=== PATIENT | male | born 1975 | race Caucasian/White ===

== ENCOUNTER 2017-06-24 22:31 | Observation (INO) | payer MEDICAID, OTHER ==
[2017-06-24 22:31] VITALS: BMI 24.3
[2017-06-24] MEDS ORDERED: DiphenhydrAMINE 50 mg/ml Inj IM STA (22:50)
[2017-06-24] MEDS ORDERED: TDAP Vaccine 0.5 mL Syr IM ONE (22:50)
--- NOTE | 2017-06-24 22:53 | ED PDOC ---
Arrival/HPI - General Historian: Patient, EMS - History of Present Illness Symptom Onset: Gradual Severity Level: Mild Activities at Onset: Light - General Chief Complaint: Alcohol Ingestion Time Seen by Provider: 06/24/17 22:46 - History of Present Illness Narrative History of Present Illness (Text): 06/24/17 23:01 Patient presents with slurring of speech and alcohol on breath. Admits to drinking throughout the day. Pt denies suicidal or homicidal ideations. Patient has superficial abrasions to bilateral knees. (Cheikh Bill) Past Medical History - Provider Review Nursing Documentation Reviewed: Yes - Musculoskeletal/Rheumatological Hx Falls: No - Psychiatric Hx Substance Use: No - Past Surgical History Past Surgical History: No Previous - Anesthesia Hx Anesthesia: No Family/Social History - Physician Review Nursing Documentation Reviewed: Yes Family/Social History: No Known Family HX Smoking Status: Unknown If Ever Smoked Hx Alcohol Use: Yes Frequency of alcohol use: Few days per week Hx Substance Use: No Allergies/Home Meds Allergies/Adverse Reactions: Allergies shellfish derived Allergy (Verified 06/24/17 22:47) VOMITING Review of Systems - Review of Systems Systems not reviewed;Unavailable: Intoxicated Physical Exam Vital Signs Reviewed: Yes Temperature: Afebrile Blood Pressure: Normal Pulse: Regular Respiratory Rate: Normal Appearance: Positive for: Non-Toxic Pain Distress: None Mental Status: Positive for: Agitated. No: Confused - Physical Exam Narrative Physical Exam (Text): 06/24/17 23:02 Patient is in no distress, no airway compromise, breathing without difficulty, good insp/exp effort. No signs of head/torso trauma. Following commands without difficulty. Head: Present: Atraumatic, Normocephalic. No: Tenderness, Contusion, Swelling, Ecchymosis, Abrasion, Laceration Pupils: Present: PERRL Extroacular Muscles: Present: EOMI Conjunctiva: Present: Normal Mouth: Present: Moist Mucous Membranes Neck: Present: Normal Range of Motion. No: MIDLINE TENDERNESS, Paraspinal Tenderness Respiratory/Chest: Present: Clear to Auscultation, Good Air Exchange. No: Respiratory Distress, Accessory Muscle Use Cardiovascular: Present: Regular Rate and Rhythm, Normal S1, S2. No: Murmurs Abdomen: Present: Normal Bowel Sounds. No: Tenderness, Distention, Peritoneal Signs, Rebound, Guarding Back: Present: Normal Inspection. No: Midline Tenderness, Paraspinal Tenderness Upper Extremity: Present: Normal Inspection. No: Cyanosis, Edema Lower Extremity: Present: superficial abrasions to b/l knees with full active and passive range of motion. No: Edema Neurological: Present: GCS=15, CN II-XII Intact Skin: Present: Warm, Dry, Normal Color. No: Rashes Lymphatic: Present: OX3, NI, NC Psychiatric: Present: Alert. Agitated Absent: suicidal/homicidal ideations (Cheikh Bill) Vital Signs Temp Pulse Resp BP Pulse Ox 06/25/17 12:09 76 15 147/80 97 06/25/17 10:55 66 16 123/74 98 06/25/17 08:30 65 15 91/56 L 98 06/25/17 06:00 68 16 107/64 100 06/25/17 03:31 98.0 F 70 17 107/63 98 Medical Decision Making ED Course and Treatment: Impression: A 41 year old male who presents to the emergency department via ambulance for intoxication. Patient admits to drinking alcohol and has superficial abrasion to b/l knees with full active and passive range of motion. Patient became agitated, a threat to self and others, attempted verbal de escalation which was unsuccessful. Medications ordered. Plan: -- CT Head -- Benadryl -- Haldol -- Ativan -- Tdap -- Knee X-ray -- Reassess and disposition Progress Notes: 06/24/17 23:[address] pt on edobs for etoh intoxication. (Cheikh Bill) - Medication Orders Current Medication Orders: Discontinued Medications Diphenhydramine HCl (Benadryl) 50 mg IM STAT STA Stop: 06/24/17 22:51 Last Admin: 06/24/17 22:55 Dose: 50 mg Haloperidol Lactate (Haldol) 5 mg IM STAT STA Stop: 06/24/17 22:51 Last Admin: 06/24/17 22:55 Dose: 5 mg Lorazepam (Ativan) 2 mg IM ONCE ONE Stop: 06/24/17 22:51 Last Admin: 06/24/17 22:55 Dose: 2 mg Tetanus/Reduced Diphtheria/Acell Pertussis (Boostrix Vaccine Inj) 0.5 ml IM .ONCE ONE Stop: 06/24/17 22:51 Last Admin: 06/25/17 00:40 Dose: 0.5 ml Ziprasidone (Geodon Inj) 20 mg IM STAT STA PRN Reason: Protocol Stop: 06/25/17 01:05 Last Admin: 06/25/17 01:20 Dose: 20 mg Ziprasidone (Geodon Inj) Confirm Administered Dose 20 mg IM .STK-MED ONE Stop: 06/25/17 01:07 Last Admin: 06/25/17 01:25 Dose: ED OBSERVATION Date of observation admission: 06/24/17 Time of observation admission: 22:53 - Observation admission statement Patient is being placed in observation because:: alcohol intoxication (Cheikh Bill) - Goals of Observation Goals of observation are:: pending sobriety (Cheikh Bill) - Progress Note Progress Note: 06/24/17 22:33 Patient agitate in the ed, Haldol and benadryl ordered. Stable vitals. 06/25/17 01:34 Patient is alert, agitated. Sedated with 20mg Geodon and placed on 4pt restraints. 06/25/17 03:34 On reevaluation, patient is resting comfortably watching TV in the er. Stable vitals. No signs of withdrawal. 06/25/17 07:00 patient signed out to Dr. Montoya in stable condition, pending sobriety, imaging , reevakl, dispo (Cheikh Bill) 06/25/17 07:05 Patient endorsed to me by Dr. Bill. Pending sobriety and imaging. Patient presented for alcohol intoxication. Report Date : 06/25/2017 08:10:43 PROCEDURE: CT HEAD WITHOUT CONTRAST. Dictator : Jorge Luis Collins MD IMPRESSION: Normal CT of the Head. 06/25/17 09:00 Patient resting comfortably, in no acute distress. 06/25/17 11:10 On re-evaluation, patient is clinically sober, ambulating with a steady gait. I have discussed the results and plan with the patient, who expresses understanding. Patient in agreement with plan to be discharged home. Patient is stable for discharge. Report Date : 06/25/2017 12:26:31 PROCEDURE: Bilateral Knee Radiographs. Dictator : Timmy Cruz MD IMPRESSION: Normal radiographs of the knees. (Evert Montoya) - Scribe Statement The provider has reviewed the documentation as recorded by the Scribe - Scribe Statement Filomena Allen (Cheikh Bill) Provider Attestation: Provider Scribe Attestation: All medical record entries made by the Scribe were at my direction and personally dictated by me. I have reviewed the chart and agree that the record accurately reflects my personal performance of the history, physical exam, medical decision making, and the department course for this patient. I have also personally directed, reviewed, and agree with the discharge instructions and disposition. (Cheikh Bill) Disposition/Present on Arrival - Present on Arrival Any Indicators Present on Arrival: No History of DVT/PE: No History of Uncontrolled Diabetes: No Urinary Catheter: No History of Decub. Ulcer: No History Surgical Site Infection Following: None - Disposition Have Diagnosis and Disposition been Completed?: Yes Disposition Time: 22:53 Patient Plan: Observation - Disposition Diagnosis: Alcohol intoxication Disposition: HOME/ ROUTINE Patient Problems: Current Active Problems Problem Status Onset Alcohol intoxication Acute Condition: STABLE
[2017-06-25 04:42] VITALS: TEMP 98
--- NOTE | 2017-06-25 08:12 | CT ---
PROCEDURE: CT HEAD WITHOUT CONTRAST. HISTORY: EtOH, fall COMPARISON: None available. TECHNIQUE: Axial computed tomography images were obtained through the head/brain without intravenous contrast. Radiation dose: Total exam DLP = 723 mGy-cm. This CT exam was performed using one or more of the following dose reduction techniques: Automated exposure control, adjustment of the mA and/or kV according to patient size, and/or use of iterative reconstruction technique. FINDINGS: HEMORRHAGE: No intracranial hemorrhage. BRAIN: No mass effect or edema. No atrophy or chronic microvascular ischemic changes. VENTRICLES: Unremarkable. No hydrocephalus. CALVARIUM: Unremarkable. PARANASAL SINUSES: Unremarkable as visualized. No significant inflammatory changes. MASTOID AIR CELLS: Unremarkable as visualized. No inflammatory changes. OTHER FINDINGS: None. IMPRESSION: Normal CT of the Head.
[2017-06-25 12:10] VITALS: BP 147/80; PULSE 76; RESP 15; O2SAT 97
--- NOTE | 2017-06-25 12:32 | RAD ---
PROCEDURE: Bilateral Knee Radiographs. HISTORY: FALL COMPARISON: None. FINDINGS: BONES: Right Knee: Normal. No fracture. Left Knee: Normal. No fracture. JOINTS: Right Knee: Normal. No osteoarthritis. Left knee: Normal. No osteoarthritis. SOFT TISSUES: Right Knee: Normal. Left Knee: Normal. JOINT EFFUSION: Right Knee: None. Left Knee: None. OTHER FINDINGS: None. IMPRESSION: Normal radiographs of the knees.
== END 2017-06-25 12:14 | disposition home or self-care (01) ==
LOC: ED 22:31 → EROBSV 22:51
PROVIDERS: ADMIT Emergency Medicine; ATTEND Emergency Medicine
DX: F10.129 Alcohol abuse with intoxication, unspecified (principal); Z23 Encounter for immunization
CPT/HCPCS: 70450; 73560; 82948; 90471; 90715; 96372; 99285; G0378; J1200; J1630; J2060; J3486